=== PATIENT | female | born 1965 | race Caucasian/White ===

== ENCOUNTER 2020-12-08 15:51 | Inpatient (IN) | payer OTHER ==
[~2020-12-08] VITALS: Ht 167.6 cm; Wt 75.7 kg
[2020-12-08 17:10] VITALS: BP 138/80
[2020-12-08] MEDS ORDERED: CRESTOR10 MG PO (18:03)
[2020-12-08] MEDS ORDERED: REQUIP 1 MG TABL1 M1 PO (18:04)
[2020-12-08] MEDS ORDERED: AMBIEN 10 MG TA10 MG PO (18:05)
[2020-12-08] MEDS ORDERED: IMITREX 50 MG T50 MG PO (18:06)
[2020-12-08 20:41] VITALS: BP 120/75
[2020-12-09 04:29] VITALS: BP 103/53
--- NOTE | 2020-12-09 04:50 | NUR ---
PROGRESS PT A/O X4, LUNGS DIMINISHED AND PT BREATHING VERY SHALLOW, O2 SATS AT 91 TO 93% ON 2 LITERS ISP AT BEDSIDE, ENCOURAGED PT TO USE INDEPENDENTLY. C/O BACK PAIN AND ORDER FOR TRAMADOL OBTAINED AND ONE TIME DOSE OF NORCO. PT SLEPT MOST OF NIGHT. UP AD CHRISTIE TO BATHROOM DURING DAY AND BSC AT HS. GAIT STEADY PT ABLE TO MANAGE O2 TUBING. CONTINUE TO TITRATE O2, INCREASE ISP USE.
[2020-12-09 06:32] LABS: HEMATOCRIT 41.7 % (37.0-47.0); HEMOGLOBIN 13.7 gm/dL (12.0-15.0); MCH 28.2 pg (26.0-34.0); MCHC 32.7 g/dL (28.0-37.0); RBC 4.85 mil/uL (4.20-5.00)
[2020-12-09 06:46] LABS: ALBUMIN 2.9 g/dL (3.4-5.0); ANION GAP 8 mmol/L (7-16); BUN 23 mg/dL (7-18); CALCIUM 8.8 mg/dL (8.5-10.1); CHLORIDE 101 mmol/L (98-107); CO2 30 mmol/L (21-32); CREATININE 0.8 mg/dL (0.6-1.0); DIRECT BILIRUBIN < 0.1 mg/dL (<0.1-0.2); GLUCOSE 172 mg/dL (74-106); PHOSPHORUS 3.5 mg/dL (2.5-4.9); SGOT 32 U/L (15-37); SGPT 36 U/L (30-65); SODIUM 139 mmol/L (136-145); TOTAL BILIRUBIN 0.2 mg/dL (0.2-1.0); TOTAL PROTEIN 7.3 g/dL (6.4-8.2)
[2020-12-09 07:17] VITALS: BP 121/71
[2020-12-09 15:18] VITALS: BP 115/77
--- NOTE | 2020-12-09 19:35 | NUR ---
PT PROGRESSING TOWARDS GOALS SLOWLY...O2 4L WITH SATS 92%...IS TO 500...ENCOUARGE OOB MUCH POSSIBLE...
[2020-12-09 19:53] VITALS: BP 123/82
[2020-12-10 03:33] VITALS: BP 115/74
--- NOTE | 2020-12-10 04:49 | NUR ---
PROGRESS PT PROGRESSING, O2 AT 4 LITERS SATS AT 92 TO 95%. UP AD CHRISTIE GAIT STEADY MANAGES TUBING AND EQUIPMENT WITHOUT DIFFICULTY. C/O OF LOW BACK PAIN, BILATERAL SHOULDER PAIN RATING IT A 7 NORCO GIVEN WITH EFFECT. ALSO C/O MIGRAINE AND REQUESTED SUMATRIPTAN ORDER OBTAINED AND GIVEN WITH EFFECT, USING ISP INDEPENDENTLY UP TO 500 ML'S. ENCOURAGE PT TO CONTINUE ACTIVITY IN ROOM SPENT DAY IN CHAIR. CONTINUE TO MONITOR.
--- NOTE | 2020-12-10 05:11 | HC ---
[facility] [place] [address] CONSULTATION Name: CANDICE ROSE Room #: 355-P ADM IN M.R.#: [id number] Admission: 12/08/20 Attend Phys: Binh Stein MD Discharge: Date of : 63 Report #: [id number] THIS REPORT FOR: cc: Mariza Nieves MD, Tammy MD Barry,Andres Ordonez MD ~ DATE OF SERVICE: 12/09/2020 INFECTIOUS DISEASE CONSULTATION ATTENDING PHYSICIAN: Dr. Rae. REASON FOR EVALUATION: COVID-19 infection, complicated by pneumonitis and respiratory failure. HISTORY OF PRESENT ILLNESS: Chart reviewed. The patient examined. This is a 55-year-old woman with history of fibromyalgia, who [facility], had been [facility] and initiated on low dose oxygen; however, the course of the last 24 hours prior to her transfer had increased supplemental requirements to 5 liters. There is no option for ventilation. She notes she has been ill for a number of days high-grade fevers, generalized myalgias, arthralgias, GI related complaints with nausea, poor p.o. intake, currently is on 4 liters per nasal cannula. She was empirically started on therapy with remdesivir and vitamins as well as dexamethasone. ALLERGIES: LISTED TO CODEINE. CURRENT MEDICATIONS: Include dexamethasone, zinc, tramadol, enoxaparin, ropinirole, ascorbic acid, furosemide, benzonatate, acetaminophen, zolpidem, p.r.n. analgesics, antiemetics. PAST MEDICAL HISTORY: Fibromyalgia, hyperlipidemia, arthritis, depression, restless leg syndrome. SOCIAL HISTORY: Nonsmoker, occasional ethanol, no illicit drug use. FAMILY HISTORY: Noncontributory. REVIEW OF SYSTEMS: Otherwise, unremarkable. PHYSICAL EXAMINATION: GENERAL: She is alert, cooperative, mild to moderate distress, mildly undernourished. VITAL SIGNS: Temperature 98.6, pulse 67, respirations 16, blood pressure 121/71. SKIN: Warm, dry, no rashes. [address] [address] CONSULTATION Name: CANDICE ROSE Room #: 355-P ADM IN M.R.#: [id number] Admission: 12/08/20 Attend Phys: Binh Stein MD Discharge: Date of : 63 Report #: [id number] HEENT: Normocephalic. Extraocular muscles intact. Nasal cannula in place. NECK: Supple. LUNGS: Few scattered coarse breath sounds. HEART: Regular, I do not appreciate a murmur. ABDOMEN: Mildly distended, soft, nontender. EXTREMITIES: No cyanosis. GENITOURINARY AND RECTAL: Deferred. LABORATORY DATA: CBC: White count 10.0, H and H 13.7 and 41.7, platelets of 205. Electrolytes: Sodium 139, potassium 4, chloride 101, bicarbonate is 30, anion gap of 8, BUN and creatinine 23 and 0.8. LFTs unremarkable. Albumin 2.9, total protein 7.3. Chest x-ray showed multifocal not consolidated pulmonary infiltrates bilaterally. ASSESSMENT AND PLAN: COVID-19 infection, complicated by pneumonitis and respiratory failure. We will continue current approach with therapy directed against coronavirus with remdesivir, also adjunctive therapy with corticosteroids and vitamins. We will give Actemra as well. She remains somewhat tenuous at this point. Continue to monitor expectantly, oxygen therapy as required. Initiate incentive spirometry. <ELECTRONICALLY SIGNED> By: Andres Ley MD 12/10/20 0511 [id number] Andres Ley MD /nt
[2020-12-10 06:01] LABS: ALBUMIN 2.9 g/dL (3.4-5.0); ANION GAP 8 mmol/L (7-16); BUN 28 mg/dL (7-18); CALCIUM 8.8 mg/dL (8.5-10.1); CHLORIDE 98 mmol/L (98-107); CO2 32 mmol/L (21-32); CREATININE 0.9 mg/dL (0.6-1.0); DIRECT BILIRUBIN < 0.1 mg/dL (<0.1-0.2); GLUCOSE 156 mg/dL (74-106); PHOSPHORUS 4.5 mg/dL (2.5-4.9); POTASSIUM 4.1 mmol/L (3.5-5.1); SGOT 30 U/L (15-37); SGPT 45 U/L (30-65); SODIUM 138 mmol/L (136-145); TOTAL BILIRUBIN 0.3 mg/dL (0.2-1.0); TOTAL PROTEIN 7.2 g/dL (6.4-8.2)
[2020-12-10 07:51] VITALS: BP 117/71
[2020-12-10 16:56] VITALS: BP 123/69
[2020-12-10 19:39] VITALS: BP 110/73
--- NOTE | 2020-12-10 19:58 | NUR ---
RN ASSUMED PT'S CARE AT 0700-1900PM, PT IS A&OX4, PT OS ON O2 4L/MIN/NC, PT'S O2SAT STAY AT 92-95%, BUT PT STILL HAS SOB WITH ASCTIVITIES, PT'S VS ARE STABLE AT DAY SHIFT, PT IS CONTINUING PAIN MANAGEMENT AND TREAT COVID MEDICATIONS.
[2020-12-11 03:05] LABS: GLYCOHEMOGLOBIN (HGB A1C) 6.2 % (4.8-5.6)
[2020-12-11 04:26] VITALS: BP 97/66
[2020-12-11 05:57] LABS: ANION GAP 3 mmol/L (7-16); BUN 28 mg/dL (7-18); CALCIUM 8.7 mg/dL (8.5-10.1); CHLORIDE 101 mmol/L (98-107); CO2 37 mmol/L (21-32); DIRECT BILIRUBIN < 0.1 mg/dL (<0.1-0.2); GLUCOSE 153 mg/dL (74-106); PHOSPHORUS 3.7 mg/dL (2.5-4.9); POTASSIUM 4.7 mmol/L (3.5-5.1); SGOT 16 U/L (15-37); SGPT 38 U/L (30-65); SODIUM 141 mmol/L (136-145); TOTAL BILIRUBIN 0.3 mg/dL (0.2-1.0); TOTAL PROTEIN 7.1 g/dL (6.4-8.2)
--- NOTE | 2020-12-11 07:11 | NUR ---
PROGRESS PT A/O X4 UP AD CHRISTIE ON 4 LITERS O2 STILL SOB WITH ACTIVITY LUNGS DIMINISHED BUT PT BREATHING DEEPER. REPORTS LOW BACK PAIN AND SHOULDER PAIN RATING A 5 TO 7 TAKING HYDROCODONE PRN WITH EFFECT PT SLEEPS AFTER. PT REPORTS SHE HAS NOT BEEN EATING WELL D/T DISLIKE OF THE FOOD HERE. OFFERED SOME FOOD FROM HOME AND ATE SOME AND ENJOYED IT. HOPES TO DC HOME TODAY. CONTINUE POC.
[2020-12-11 07:12] VITALS: BP 124/81
[2020-12-11 14:03] VITALS: BP 124/81
--- NOTE | 2020-12-11 14:11 | NUR ---
Case opened to follow for dc planing needs. Pt is in enhanced ISO d/t covid +pneumonia. Survey Analyst spoke with the pt via phone regarding her dc needs. Case discussed with the care team and chart reveiwed. Pt is improving but still short of breath with activity. She is on 4-5liters of o2 with goal of weaning down to 2liters. Possible dc home tomorrow if she continues to improve. The pt is up ad alona in her room. She lives at home with her spouse Ilia and is normally indep with gait and adl's. She did get the J/J covid vacine in May. She lives in [place], [place] and was transfered here from [facility]. O2 referral discussed. [facility] selected as they have a branch office in [place], [place]. They accept her insurance plan and can deliever the home system to her spouse derick or in the am. Face sheet info confirmed with the pt. Her cell number is [phone]. She did ask about an o2 company in [place], [place] however they are a small local company and may not be able to get a portable to for the ride home. Per portable provided. Will need final script and o2 sat/exercise ox faxed to in the am.
[2020-12-11 15:03] VITALS: BP 118/71
--- NOTE | 2020-12-11 19:40 | NUR ---
RN ASSUMED PT'S CARE AT 0700-1900PM, PT IS A&OX4, PT IS ON O2 4L/MIN/NC, PT'S O2SAT STAY AT 94-97%, PT'S SOB ( WITH ACTIVITIES ) HAS IMPROVED, PT'S VS ARE STABLE, PT MAY DC TO HOME TOMORROW.
[2020-12-11 19:56] VITALS: BP 122/80
--- NOTE | 2020-12-11 22:05 | NUR ---
PT WATCHING TV. O2 PER NC. PT PROVIDED HS SNACK. LUNGS WITH WHEEZES. PT DISCUSSED HOW UPSET SHE IS THAT SHE GOT THE VACCINE AND BECAME THIS ILL ANYWAY. STATING SHE FEELS ISOLATED AND LOOKING FORWARD TO DC IN AM. PT CALLS FOR ASSISTANCE. INDEP WITH BSC.
[2020-12-12 05:53] LABS: ALBUMIN 3.1 g/dL (3.4-5.0); ANION GAP 5 mmol/L (7-16); BUN 29 mg/dL (7-18); CALCIUM 8.9 mg/dL (8.5-10.1); CHLORIDE 100 mmol/L (98-107); CO2 33 mmol/L (21-32); CREATININE 0.8 mg/dL (0.6-1.0); DIRECT BILIRUBIN < 0.1 mg/dL (<0.1-0.2); GLUCOSE 149 mg/dL (74-106); PHOSPHORUS 3.3 mg/dL (2.5-4.9); SGOT 19 U/L (15-37); SGPT 46 U/L (30-65); SODIUM 138 mmol/L (136-145); TOTAL BILIRUBIN 0.3 mg/dL (0.2-1.0); TOTAL PROTEIN 7.1 g/dL (6.4-8.2)
[2020-12-12 08:10] VITALS: BP 107/67
--- NOTE | 2020-12-12 11:50 | NUR ---
CARE TEAM INDICATED THAT PT WAS STILL ON 4L O2 THIS DAY AND THAT THEY WANTRED TO ON 2L OR LESS AT TIME OF DISCHARGE. DR. SUAREZ INDICATED THAT HE DIDN'T FEEL PT WAS DC READY THIS DAY. CM CALLED AND EXPLAINED TO PT AND SHE INDICATED THAT REGARDLESS OF HOW MANY LITERS SHE WAS ON SHE WANTED TO DC HOME THIS DAY. SHE INDICATED HER ANXIETY WAS VERY HIGH AND THAT SHE COULD TITRATE HER O2 AT HOME. SHE INDICATED THAT HER HOME O2 SET UP HAD BEEN DELIVERED BY [facility]. CM HAS O2 SCRIPT SUGNED BUT NEED FINAL EX OX TESTING DONE THIS DAY TO FAX TO [facility]. CM INDICATED THAT CM WOULD CONVEY PT'S PREFERANCE TO PROVIDER. CM NOTIFIED DR. SUAREZ AND HAVE NOT RECIEVED A RESPONSE OF THIS NOTE. CM FOLLOWING REGARDING DC PLANNING.
[2020-12-12 15:53] VITALS: BP 131/68
[2020-12-12] MEDS ORDERED: PREDNISONE 20 M20 MG PO (15:53)
[2020-12-12] MEDS ORDERED: ASPIRIN EC325 M1 PO (15:54)
[2020-12-12] MEDS ORDERED: LASIX 40 MG TAB40 MG PO (15:54)
--- NOTE | 2020-12-12 17:12 | NUR ---
RN ASSUMED PT'S CARE AT 0700-1700PM, PT IS A&OX4, PT'S SOB HAS IMPROVED, PT ONLY NEEDS O2 4L/MIN/NC WITH ACTIVITIES, NO O2 NEEDS AT RESTING PER RT CHECK, PT DENIES PAIN AND N/V, PT CAN WALK IN HER ROOM WITHOUT ASSIST. RN RECEVED ORDER TO DC PT TO HOME WITH O2, PT UNDERSTANDS DC , INCLUDIND HOW TO USE O2 , NEW MEDICATIONS AND COVID ISOLATION FOR 3 WEEKS SINCE TEST POSITIVE COVID DATE. PT'S TURBINE MECHANIC PT TO HOME AT 1700PM.
== END 2020-12-12 17:18 | disposition home or self-care (01) | DRG 177 ==
LOC: 3W 15:51
PROVIDERS: ADMIT Hospitalist; ATTEND Hospitalist
DX: U07.1 COVID-19 (principal); J12.82 Pneumonia due to coronavirus disease 2019; J96.91 Respiratory failure, unspecified with hypoxia; G25.81 Restless legs syndrome; E78.5 Hyperlipidemia, unspecified; F32.9 Major depressive disorder, single episode, unspecified; M19.90 Unspecified osteoarthritis, unspecified site; Z79.82 Long term (current) use of aspirin; Z79.899 Other long term (current) drug therapy; Z88.6 Allergy status to analgesic agent; Z23 Encounter for immunization
CPT/HCPCS: 10879